=== PATIENT | female | born 1980 | race Caucasian/White ===

== ENCOUNTER 2017-10-31 16:03 | Emergency (ER) | payer OTHER ==
[2017-10-31] MEDS ORDERED: SODIUM CHLORIDE 0.9% 1000ML 1,000 ML IV STA (16:07)
--- NOTE | 2017-10-31 16:20 | EMERGENCY ROOM VISIT NOTE ---
History Report prepared by Luana: Ramu Monterroso Under the Supervision of: Dr. Darshan Harden M.D. First contact with patient: 16:04 Chief Complaint: CARDIAC ASSESSMENT Stated Complaint: CHEST PAIN History of Present Illness The patient is a 37 year old female who presents to the Emergency Room with complaints of constant chest pain starting today. The patient states that she is also having left arm pain and left jaw pain. The patient went to [place] today, and she was sent to the ED for medical clearance. She notes that she has a history of RSD and CRPS. The patient states that she has been more confused recently, and she is having difficulty understanding things. She notes that she has a history of anxiety, and she states that she currently takes Klonopin and propanol. The patient states that she was near [place] when 03/18 occurred, and she states that she thinks that something is in her head, and she should have been tested. The patient states that she sees a psychologist, though she does not see a therapist. She currently states that she feels hopeless, and she denies any thoughts of hurting herself or others. She also denies hearing voices , drug use, alcohol use, cigarette use, and using oral contraception. The patient notes that she has been in psych inpatient treatment before. Source of History: patient Onset: today Position: chest Timing: constant Note: Associated symptoms: Left arm pain and jaw pain. Feels hopeless Review of Systems See HPI for pertinent positives and negatives. A total of ten systems were reviewed and were otherwise negative. Past Medical & Surgical Medical Problems: (1) CRPS (complex regional pain syndrome) (2) RSD (reflex sympathetic dystrophy) Social History Marital Status: single Occupation Status: unemployed Current/Historical Medications Scheduled Clonazepam (Klonopin), 1 MG PO DAILY Duloxetine HCl (Cymbalta), 1 CAP PO DAILY Magnesium Oxide (Mag-Ox), 400 MG PO DAILY Propranolol (Inderal), 20 MG PO BID Turmeric (Curcuma Longa) (Turmeric), 1 TAB PO DAILY Allergies Coded Allergies: Sulfa Antibiotics (Verified Allergy, Severe, HIVES, 10/31/17) Carbinoxamine (Verified Allergy, Unknown, UNKNOWN, 10/31/17) Penicillins (Verified Allergy, Unknown, UNKNOWN, [facility] ) Pseudoephedrine (Verified Allergy, Unknown, UNKNOWN, 10/31/17) Physical Exam Vital Signs Date Time Temp Pulse Resp B/P (MAP) Pulse Ox O2 Delivery O2 Flow Rate FiO2 10/31/17 16:52 61 16 125/86 100 Room Air 10/31/17 16:33 36.6 75 117/88 96 Room Air 10/31/17 16:30 96 Room Air 10/31/17 16:24 76 Physical Exam GENERAL: Awake, alert, anxious-appearing, intermittently tearful, in no distress HENT: Normocephalic, atraumatic. Oropharynx unremarkable. Dry mucous membranes EYES: Normal conjunctiva. Sclera non-icteric. NECK: Supple. No nuchal rigidity. FROM. No JVD. RESPIRATORY: Clear to auscultation. CARDIAC: Regular rate, normal rhythm. Extremities warm and well perfused. Pulses equal. ABDOMEN: Soft, non-distended. No tenderness to palpation. No rebound or guarding. No masses. RECTAL: Deferred. MUSCULOSKELETAL: Chest examination reveals no tenderness. The back is symmetrical on inspection without obvious abnormality. There is no CVA tenderness to palpation. No joint edema. LOWER EXTREMITIES: Calves are equal size bilaterally and non-tender. No edema. No discoloration. NEURO: Normal sensorium. No sensory or motor deficits noted. Normal cerebellar function with [id number], alternating palms, [id number]. SKIN: No rash or jaundice noted. PSYCH: No HI. Passive SI and hopelessness. No hallucinations. Medical Decision & Procedures ER Provider Diagnostic Interpretation: Radiology results as stated below per my review and radiologist interpretation: CT OF THE HEAD WITHOUT CONTRAST CLINICAL HISTORY: Altered mental status. COMPARISON STUDY: No previous studies for comparison. CT DOSE: 537.48 mGy.cm TECHNIQUE: Helical axial images of the head were obtained without IV contrast. Automated exposure control was utilized for the study. A dose lowering technique was utilized adhering to the principles of ALARA. FINDINGS: No acute intracranial hemorrhage, midline shift or mass effect is present. Brain volume is normal. Ventricular system is normal. The basilar cisterns are patent. There are no extra-axial collections. Thurston-white differentiation is maintained. There are no findings to suggest acute dural sinus thrombosis or acute territorial infarct. There are no significant calvarial abnormalities. Visualized portions of the sinuses and mastoid air cells are clear. IMPRESSION: No acute intracranial findings. Electronically signed by: Ector Dominguez M.D. 10/31/2017 5:27 PM Dictated Date/Time: 10/31/2017 5:15 PM CHEST ONE VIEW PORTABLE CLINICAL HISTORY: cp dyspnea COMPARISON STUDY: No previous studies for comparison. FINDINGS: The bones soft tissues and hemidiaphragms are normal. The cardiomediastinal silhouette is normal. The lungs are clear. The pulmonary vasculature is normal. IMPRESSION: Negative chest. The above report was generated using voice recognition software. It may contain grammatical, syntax or spelling errors. Electronically signed by: Markus Villar M.D. 10/31/2017 4:48 PM Dictated Date/Time: 10/31/2017 4:48 PM Laboratory Results 10/31/17 15:54 Red Blood Count 4.39, Mean Corpuscular Volume 90.0, Mean Corpuscular Hemoglobin 31.2, Mean Corpuscular Hemoglobin Concent 34.7, Mean Platelet Volume 12.2, Neutrophils (%) (Auto) 58.6, Lymphocytes (%) (Auto) 30.6, Monocytes (%) (Auto) 8.4, Eosinophils (%) (Auto) 1.9, Basophils (%) (Auto) 0.3, Neutrophils # (Auto) 3.40, Lymphocytes # (Auto) 1.78, Monocytes # (Auto) 0.49, Eosinophils # (Auto) 0.11, Basophils # (Auto) 0.02 10/31/17 15:54 Test 10/31/17 15:54 10/31/17 16:40 10/31/17 17:05 White Blood Count 5.81 K/uL (4.8-10.8) Red Blood Count 4.39 M/uL (4.2-5.4) Hemoglobin 13.7 g/dL (12.0-16.0) Hematocrit 39.5 % (37-47) Mean Corpuscular Volume 90.0 fL (80-100) Mean Corpuscular Hemoglobin 31.2 pg (25-34) Mean Corpuscular Hemoglobin Concent 34.7 g/dl (32-36) Platelet Count 172 K/uL (130-400) Mean Platelet Volume 12.2 fL (7.4-10.4) Neutrophils (%) (Auto) 58.6 % Lymphocytes (%) (Auto) 30.6 % Monocytes (%) (Auto) 8.4 % Eosinophils (%) (Auto) 1.9 % Basophils (%) (Auto) 0.3 % Neutrophils # (Auto) 3.40 K/uL (1.4-6.5) Lymphocytes # (Auto) 1.78 K/uL (1.2-3.4) Monocytes # (Auto) 0.49 K/uL (0.11-0.59) Eosinophils # (Auto) 0.11 K/uL (0-0.5) Basophils # (Auto) 0.02 K/uL (0-0.2) RDW Standard Deviation 41.8 fL (36.4-46.3) RDW Coefficient of Variation 12.9 % (11.5-14.5) Immature Granulocyte % (Auto) 0.2 % Immature Granulocyte # (Auto) 0.01 K/uL (0.00-0.02) Anion Gap 5.0 mmol/L (3-11) Estimated GFR () 90.9 Estimated GFR (Non- 78.4 BUN/Creatinine Ratio 8.8 (10-20) Calcium Level 8.9 mg/dl (8.5-10.1) Total Bilirubin 0.6 mg/dl (0.2-1) Direct Bilirubin 0.1 mg/dl (0-0.2) Aspartate Amino Transf (AST/SGOT) 6 U/L (15-37) Alanine Aminotransferase (ALT/SGPT) 13 U/L (12-78) Alkaline Phosphatase 45 U/L (45-117) Total Protein 7.2 gm/dl (6.4-8.2) Albumin 4.3 gm/dl (3.4-5.0) Globulin 2.9 gm/dl (2.5-4.0) Albumin/Globulin Ratio 1.5 (0.9-2) Thyroid Stimulating Hormone (TSH) 0.837 uIu/ml (0.300-4.500) Salicylates Level < 1.7 mg/dl (2.8-20) Acetaminophen Level < 2 ug/ml (10-30) Ethyl Alcohol mg/dL < 3.0 mg/dl (0-3) Urine Color YELLOW Urine Appearance CLEAR (CLEAR) Urine pH 7.0 (4.5-7.5) Urine Specific [place] 1.013 (1.000-1.030) Urine Protein NEG (NEG) Urine Glucose (UA) NEG (NEG) Urine Ketones 1+ (NEG) Urine Occult Blood NEG (NEG) Urine Nitrite NEG (NEG) Urine Bilirubin NEG (NEG) Urine Urobilinogen NEG (NEG) Urine Leukocyte Esterase NEG (NEG) Urine Test NEG (NEG) Urine Opiates Screen NEG (NEG) Urine Methadone, Qualitative NEG (NEG) Urine Barbiturates NEG (NEG) Urine Phencyclidine (PCP) Level NEG (NEG) Ur Amphetamine/Methamphetamine NEG (NEG) MDMA (Ecstasy) Screen NEG (NEG) Urine Benzodiazepines Screen NEG (NEG) Urine Cocaine Metabolite NEG (NEG) Urine Marijuana (THC) NEG (NEG) Laboratory results reviewed by me Medications Administered Medications (Trade) Dose Ordered Sig/Hilary Route Start Time Stop Time Status Last Admin Dose Admin Sodium Chloride 1,000 ml @ 999 mls/hr Q1H1M STAT IV 10/31/17 16:07 10/31/17 17:07 DC 10/31/17 16:51 999 MLS/HR ECG Per My Interpretation Indication: chest pain Rate (beats per minute): 71 Rhythm: normal sinus Findings: T-wave inversion (non-specific in V5), no acute ischemic change, other (Sinus arrhythmia, normal axis) ED Course 1604: The patient was evaluated in room B4. A complete history and physical exam was performed. Medical Decision I reviewed the patient's past medical history, medications, and the nursing notes as described above. Differential diagnosis: Etiologies such as cardiac ischemia, aortic dissection, pulmonary embolism, pneumonia, pneumothorax, musculoskeletal, infections, pericarditis, myocarditis , esophageal rupture, gastrointestinal, hypoglycemia, electrolyte abnormalities , intracerebral event, toxicologic, neurologic, as well as others were entertained. The patient is a 37-year-old woman with a past medical history of PTSD presents emergency department from the [facility] for evaluation of her chest pain after she presented there as a walk-in for admission related to her worsening anxiety , depression per hpi. On arrival the patient is anxious appearing but no acute distress, AFVSS. EKG unremarkable. CXR negative. CT head unremarkable. Labs unremarkable including WBC and troponin wnl. Tox screen negative. Heart score 0 , low risk, acs unlikely. PERC negative PE not likely. Not positional, pericarditis not likely. No tearing pain and equal pulses, dissection not likely. Sx most likely related to patient's underlying anxiety/PTSD. Patient reports that she was recently admitted for psych admission in [place] recently for her symptoms of PTSD/depression. Since then she reports worsening of her symptoms with haziness in her thinking, anxiety, and hopelessness. She denies any active SI and she expresses passive SI saying that "she just cannot handle it anymore". Also during our conversation that the patient intermittently exhibits impairment with memory and with paranoid thoughts of people following her in trying to hurt her. Given the patient's severe depressive symptoms with clear evidence of despair/hopelessness and passive SI inpatient admission is appropriate. Patient is willing to be admitted voluntarily at this time. However, if she were to change her mind I believe she would meet criteria for a 302 given her state of mind at this time. At this time it appears that the [facility] does have a bed to receive the patient back and we are awaiting final confirmation. 201 signed. Medication Reconcilliation Current Medication List: was personally reviewed by me Blood Pressure Screening Patient's blood pressure: Normal blood pressure Impression Primary Impression: Suicidal ideation Additional Impression: Depression Scribe Attestation The scribe's documentation has been prepared under my direction and personally reviewed by me in its entirety. I confirm that the note above accurately reflects all work, treatment, procedures, and medical decision making performed by me. Departure Information Patient Instructions My [facility] Problem Qualifiers
[2017-10-31 16:32] LABS: BASO % 0.3 %; BASO ABS # 0.02 K/uL (0-0.2); EOS % 1.9 %; EOS ABS # 0.11 K/uL (0-0.5); HEMATOCRIT 39.5 % (37-47); HEMOGLOBIN 13.7 g/dL (12.0-16.0); IG# 0.01 K/uL (0.00-0.02); LYMPH % 30.6 %; LYMPH ABS # 1.78 K/uL (1.2-3.4); MEAN CORPUSCULAR HEMOGLOBIN 31.2 pg (25-34); MEAN CORPUSCULAR HGB CONC 34.7 g/dl (32-36); MEAN PLATELET VOLUME 12.2 fL (7.4-10.4); MONO % 8.4 %; MONO ABS # 0.49 K/uL (0.11-0.59); NEUT % 58.6 %; PLATELET COUNT 172 K/uL (130-400); RED CELL DISTRIBUTION WIDTH CV 12.9 % (11.5-14.5); RED CELL DISTRIBUTION WIDTH SD 41.8 fL (36.4-46.3); WHITE BLOOD COUNT 5.81 K/uL (4.8-10.8)
[2017-10-31 16:33] VITALS: TEMP 36.6; Ht 165.1 cm
--- NOTE | 2017-10-31 16:50 | DIAGNOSTIC IMAGING REPORT ---
CHEST ONE VIEW PORTABLE CLINICAL HISTORY: cp dyspnea COMPARISON STUDY: No previous studies for comparison. FINDINGS: The bones soft tissues and hemidiaphragms are normal. The cardiomediastinal silhouette is normal. The lungs are clear. The pulmonary vasculature is normal. IMPRESSION: Negative chest. The above report was generated using voice recognition software. It may contain grammatical, syntax or spelling errors. Electronically signed by: Markus Villar M.D. 10/31/2017 4:48 PM Dictated Date/Time: 10/31/2017 4:48 PM
[2017-10-31 16:52] LABS: ALBUMIN 4.3 gm/dl (3.4-5.0); ALT/SGPT 13 U/L (12-78); AST/SGOT 6 U/L (15-37); BLOOD UREA NITROGEN 8 mg/dl (7-18); CALCIUM 8.9 mg/dl (8.5-10.1); CARBON DIOXIDE 29 mmol/L (21-32); CREATININE 0.92 mg/dl (0.60-1.20); GLUCOSE 84 mg/dl (70-99); POTASSIUM 3.5 mmol/L (3.5-5.1); SODIUM 140 mmol/L (136-145)
[2017-10-31 17:03] LABS: ALKALINE PHOSPHATASE 45 U/L (45-117); TOTAL PROTEIN 7.2 gm/dl (6.4-8.2)
--- NOTE | 2017-10-31 17:28 | DIAGNOSTIC IMAGING REPORT ---
CT OF THE HEAD WITHOUT CONTRAST CLINICAL HISTORY: Altered mental status. COMPARISON STUDY: No previous studies for comparison. CT DOSE: 537.48 mGy.cm TECHNIQUE: Helical axial images of the head were obtained without IV contrast. Automated exposure control was utilized for the study. A dose lowering technique was utilized adhering to the principles of ALARA. FINDINGS: No acute intracranial hemorrhage, midline shift or mass effect is present. Brain volume is normal. Ventricular system is normal. The basilar cisterns are patent. There are no extra-axial collections. Thurston-white differentiation is maintained. There are no findings to suggest acute dural sinus thrombosis or acute territorial infarct. There are no significant calvarial abnormalities. Visualized portions of the sinuses and mastoid air cells are clear. IMPRESSION: No acute intracranial findings. Electronically signed by: Ector Dominguez M.D. 10/31/2017 5:27 PM Dictated Date/Time: 10/31/2017 5:15 PM
[2017-10-31] MEDS ORDERED: CLON1TAB3 PO (17:39)
[2017-10-31] MEDS ORDERED: TURM1CAP2 PO (17:39)
[2017-10-31] MEDS ORDERED: PROP20TA67 PO (17:39)
[2017-10-31] MEDS ORDERED: MAGN400T6 PO (17:39)
[2017-10-31] MEDS ORDERED: CYM/30 PO (17:39)
[2017-10-31] MEDS ORDERED: LORAZEPAM 1 MG TAB SL STA (23:49)
[2017-11-01] MEDS ORDERED: KETOROLAC TROMETHAMINE 30 MG/ML VIAL IV STA (00:07)
[2017-11-01] MEDS ORDERED: LORAZEPAM 2 MG/ML 1 ML VIAL IV STA ×2 (00:17→05:28)
--- NOTE | 2017-11-01 01:00 | EMERGENCY ROOM VISIT NOTE ---
ED Visit Note This is a 37-year-old female signed out to me at change of shift. The patient was initially a 201 and was agreeable to go to the [facility] however approximately 8 hours into her stay she became uncooperative. On my examination the patient is selectively cooperative. She is outright refusing to sign a 201. I will note that the patient was sedate when she originally arrived in the emergency department and I suspect she is in a light withdrawal. I will note her vital signs appear normal. For this reason she was given Ativan here in the emergency department. She was given a chance to sign a 201 again however refused to do so. The patient does appear acutely paranoid and at this point I have initiated 302 petition. Current/Historical Medications Scheduled Clonazepam (Klonopin), 1 MG PO DAILY Duloxetine HCl (Cymbalta), 1 CAP PO DAILY Magnesium Oxide (Mag-Ox), 400 MG PO DAILY Propranolol (Inderal), 20 MG PO BID Turmeric (Curcuma Longa) (Turmeric), 1 TAB PO DAILY Allergies Coded Allergies: Sulfa Antibiotics (Verified Allergy, Severe, HIVES, 10/31/17) Carbinoxamine (Verified Allergy, Unknown, UNKNOWN, 10/31/17) Penicillins (Verified Allergy, Unknown, UNKNOWN, HAPPENED IN [facility] ) Pseudoephedrine (Verified Allergy, Unknown, UNKNOWN, 10/31/17) Vital Signs Date Time Temp Pulse Resp B/P (MAP) Pulse Ox O2 Delivery O2 Flow Rate FiO2 10/31/17 23:28 84 114/72 96 Room Air 10/31/17 16:52 61 16 125/86 100 Room Air 10/31/17 16:33 36.6 75 117/88 96 Room Air 10/31/17 16:30 96 Room Air 10/31/17 16:24 76 Laboratory Results 10/31/17 15:54 Red Blood Count 4.39, Mean Corpuscular Volume 90.0, Mean Corpuscular Hemoglobin 31.2, Mean Corpuscular Hemoglobin Concent 34.7, Mean Platelet Volume 12.2, Neutrophils (%) (Auto) 58.6, Lymphocytes (%) (Auto) 30.6, Monocytes (%) (Auto) 8.4, Eosinophils (%) (Auto) 1.9, Basophils (%) (Auto) 0.3, Neutrophils # (Auto) 3.40, Lymphocytes # (Auto) 1.78, Monocytes # (Auto) 0.49, Eosinophils # (Auto) 0.11, Basophils # (Auto) 0.02 10/31/17 15:54 Test 10/31/17 15:54 10/31/17 16:40 10/31/17 17:05 White Blood Count 5.81 K/uL (4.8-10.8) Red Blood Count 4.39 M/uL (4.2-5.4) Hemoglobin 13.7 g/dL (12.0-16.0) Hematocrit 39.5 % (37-47) Mean Corpuscular Volume 90.0 fL (80-100) Mean Corpuscular Hemoglobin 31.2 pg (25-34) Mean Corpuscular Hemoglobin Concent 34.7 g/dl (32-36) Platelet Count 172 K/uL (130-400) Mean Platelet Volume 12.2 fL (7.4-10.4) Neutrophils (%) (Auto) 58.6 % Lymphocytes (%) (Auto) 30.6 % Monocytes (%) (Auto) 8.4 % Eosinophils (%) (Auto) 1.9 % Basophils (%) (Auto) 0.3 % Neutrophils # (Auto) 3.40 K/uL (1.4-6.5) Lymphocytes # (Auto) 1.78 K/uL (1.2-3.4) Monocytes # (Auto) 0.49 K/uL (0.11-0.59) Eosinophils # (Auto) 0.11 K/uL (0-0.5) Basophils # (Auto) 0.02 K/uL (0-0.2) RDW Standard Deviation 41.8 fL (36.4-46.3) RDW Coefficient of Variation 12.9 % (11.5-14.5) Immature Granulocyte % (Auto) 0.2 % Immature Granulocyte # (Auto) 0.01 K/uL (0.00-0.02) Anion Gap 5.0 mmol/L (3-11) Estimated GFR () 90.9 Estimated GFR (Non- 78.4 BUN/Creatinine Ratio 8.8 (10-20) Calcium Level 8.9 mg/dl (8.5-10.1) Total Bilirubin 0.6 mg/dl (0.2-1) Direct Bilirubin 0.1 mg/dl (0-0.2) Aspartate Amino Transf (AST/SGOT) 6 U/L (15-37) Alanine Aminotransferase (ALT/SGPT) 13 U/L (12-78) Alkaline Phosphatase 45 U/L (45-117) Total Protein 7.2 gm/dl (6.4-8.2) Albumin 4.3 gm/dl (3.4-5.0) Globulin 2.9 gm/dl (2.5-4.0) Albumin/Globulin Ratio 1.5 (0.9-2) Thyroid Stimulating Hormone (TSH) 0.837 uIu/ml (0.300-4.500) Salicylates Level < 1.7 mg/dl (2.8-20) Acetaminophen Level < 2 ug/ml (10-30) Ethyl Alcohol mg/dL < 3.0 mg/dl (0-3) Urine Color YELLOW Urine Appearance CLEAR (CLEAR) Urine pH 7.0 (4.5-7.5) Urine Specific [place] 1.013 (1.000-1.030) Urine Protein NEG (NEG) Urine Glucose (UA) NEG (NEG) Urine Ketones 1+ (NEG) Urine Occult Blood NEG (NEG) Urine Nitrite NEG (NEG) Urine Bilirubin NEG (NEG) Urine Urobilinogen NEG (NEG) Urine Leukocyte Esterase NEG (NEG) Urine Test NEG (NEG) Urine Opiates Screen NEG (NEG) Urine Methadone, Qualitative NEG (NEG) Urine Barbiturates NEG (NEG) Urine Phencyclidine (PCP) Level NEG (NEG) Ur Amphetamine/Methamphetamine NEG (NEG) MDMA (Ecstasy) Screen NEG (NEG) Urine Benzodiazepines Screen NEG (NEG) Urine Cocaine Metabolite NEG (NEG) Urine Marijuana (THC) NEG (NEG) Medications Administered Medications (Trade) Dose Ordered Sig/Hilary Route Start Time Stop Time Status Last Admin Dose Admin Sodium Chloride 1,000 ml @ 999 mls/hr Q1H1M STAT IV 10/31/17 16:07 10/31/17 17:07 DC 10/31/17 16:51 999 MLS/HR Departure Information Impression Primary Impression: Suicidal ideation Additional Impression: Depression Referrals [facility] (PCP) Patient Instructions My [facility] Health Problem Qualifiers
[2017-11-01] MEDS ORDERED: LORAZEPAM 1 MG TAB SL STA (04:08)
--- NOTE | 2017-11-01 06:29 | EMERGENCY ROOM VISIT NOTE ---
ED Visit Note First contact with patient: 02:22 37 yr old female initially evaluated by Dr Harden for acute paranoid psychosis and suicidal statements who was sent over from [place] for evaluation after complaining of CP and Headache. Dr Harden did extensive work up with cardiac rule out and per his chart negative Trop and EKG. Unable to see Trop on chart thus ordered POC Trop here though patient refuses any further blood work to be done and as she has no evidence ACS I feel that forcing her to have further labs drawn is not indicated, especially given that she says I will need a consultants intern to draw any more blood. Her history is vague though clearly complex with what sounds like acute break following 03/18 events she witnessed while in [facility]. Apparently recently in [facility] for range of psychiatric disorders/issues. Here she is acutely paranoid psychosis with rapidly fluctuating mood, periodic (possibly made up) disorientation, episodes of questionable catatonia, feeling that she is dieing, feeling that she is being killed, etc. She has clearly demonstrated to me, [facility], staff and other ED physicians an inability to grasp current reality and is in no way capable of caring for herself at this time. Thus with [facility] issuing warrant I have signed it. She was given IV Ativan after worsening agitation and this seems to have helped her somewhat. She was accepted to the [facility] for further management/treatment.
[2017-11-01 06:42] VITALS: BP 120/67; PULSE 82; O2SAT 98
== END 2017-11-01 06:50 ==
LOC: C.EDB 16:05 → C.EDA 11-01 06:50
DX: F32.9 Major depressive disorder, single episode, unspecified (principal); R45.851 Suicidal ideations; F22 Delusional disorders; F41.9 Anxiety disorder, unspecified; G90.50 Complex regional pain syndrome I, unspecified; F43.10 Post-traumatic stress disorder, unspecified; Z79.899 Other long term (current) drug therapy; Z88.2 Allergy status to sulfonamides; Z88.0 Allergy status to penicillin; Z88.8 Allergy status to other drugs, medicaments and biological substances